=== PATIENT | male | born 1935 | race Caucasian/White ===

== ENCOUNTER 2017-12-05 07:18 | Emergency (ER) | payer MEDICARE, BC ==
[~2017-12-05] VITALS: Ht 188 cm; Wt 91.0 kg
[~2017-12-05 07:18] MED LIST: ASPI81 PO; ATOR40TA49 PO; CALC600T10 PO; LACTCAP7 PO; LISI-360 PO; METO25 PO; PROS5TAB2 PO; PROT40TA PO; SUCR1S PO; TAMS0.4C67 PO; TICA90 PO
[2017-12-05 07:24] VITALS: BP 177/93; PULSE 93; RESP 16; TEMP 97.6; O2SAT 100
[2017-12-05] MEDS ORDERED: METO25TA3 PO (07:49)
[2017-12-05] MEDS ORDERED: ASPI81CH6 CHEW (07:49)
[2017-12-05] MEDS ORDERED: FINA5TAB2 PO (07:49)
[2017-12-05] MEDS ORDERED: LACTCAP8 PO (07:49)
[2017-12-05] MEDS ORDERED: VITA500T4 PO (07:49)
[2017-12-05] MEDS ORDERED: TAMS0.4C4 PO (07:49)
[2017-12-05] MEDS ORDERED: LISI10TA3 PO (07:49)
[2017-12-05] MEDS ORDERED: ATOR20TA15 PO (07:49)
[2017-12-05 08:00] VITALS: O2SAT 96
[2017-12-05] MEDS ORDERED: SODIUM CHLORIDE 0.9% FLUSH 10 ML FLUSH IVF PRN (08:00)
[2017-12-05 08:11] LABS: AUTOMATED NEUTROPHIL # 2.6 TH/MM3 (1.8-7.7); BASOPHIL # 0.1 TH/MM3 (0-0.2); BASOPHIL % 1.4 % (0.0-2.0); EOSINOPHIL # 0.1 TH/MM3 (0-0.4); EOSINOPHIL % 2.6 % (0.0-4.0); HEMOGLOBIN 13.2 GM/DL (13.0-17.0); LYMPHOCYTE # 1.1 TH/MM3 (1.0-4.8); MEAN CELL VOLUME 91.3 FL (80.0-100.0); MEAN CORPUSCULAR HEMOGLOBIN 30.3 PG (27.0-34.0); MEAN CORPUSCULAR HGB CONC 33.1 % (32.0-36.0); MEAN PLATELET VOLUME 7.8 FL (7.0-11.0); MONO % 10.7 % (0.0-8.0); MONOCYTE # 0.5 TH/MM3 (0-0.9); NEUT % 59.3 % (16.0-70.0); PLATELET COUNT 132 TH/MM3 (150-450); RED BLOOD COUNT 4.38 MIL/MM3 (4.50-5.90); RED CELL DISTRIBUTION WIDTH 12.6 % (11.6-17.2); WHITE BLOOD COUNT 4.4 TH/MM3 (4.0-11.0)
[2017-12-05 08:15] LABS: BILIRUBIN, URINE NEG (NEG); BLOOD, URINE TRACE (NEG); GLUCOSE,URINE NEG (NEG); KETONE, URINE NEG (NEG); NITRITE,URINE NEG (NEG); URINE COLOR YELLOW (YELLW/STRAW); URINE LEUKOCYTE ESTERASE NEG (NEG)
[2017-12-05 08:18] LABS: CHLORIDE 98 MEQ/L (98-107); SODIUM (NA) 130 MEQ/L (136-145)
[2017-12-05 08:20] VITALS: BP_SYST 132; BP_SYST 153; BP_SYST 163; BP_DIAS 62; BP_DIAS 67; BP_DIAS 73; RESP 18; RESP 20; RESP 22
[2017-12-05 08:21] LABS: CALCIUM 8.3 MG/DL (8.5-10.1)
[2017-12-05 08:22] LABS: ALBUMIN 3.9 GM/DL (3.4-5.0); BICARBONATE 24.6 MEQ/L (21.0-32.0); BLOOD UREA NITROGEN 17 MG/DL (7-18); GLUCOSE,RANDOM 98 MG/DL (74-106); INTERNATIONAL NORMALIZED RATIO 1.1 RATIO; MAGNESIUM 1.9 MG/DL (1.5-2.5); PROTHROMBIN TIME - PATIENT 10.7 SEC (9.8-11.6)
[2017-12-05 08:25] LABS: ALT (GPT) 22 U/L (12-78); AST (GOT) 28 U/L (15-37); GLOMERULAR FILTRATION RATE 64 ML/MIN (>89)
[2017-12-05 08:25] LABS: RBC, URINE 0-3 /hpf (0-3)
[2017-12-05 08:26] LABS: SQUAMOUS EPITHELIAL CELL URINE 0-5 /hpf (0-5)
[2017-12-05 08:27] LABS: TOTAL BILIRUBIN ADULT 0.9 MG/DL (0.2-1.0); TOTAL PROTEIN 7.2 GM/DL (6.4-8.2)
[2017-12-05 08:28] LABS: ALKALINE PHOSPHATASE 97 U/L (45-117)
[2017-12-05 08:30] LABS: TROPONIN I LESS THAN 0.02 NG/ML (0.02-0.05)
--- NOTE | 2017-12-05 08:33 | RADRPT ---
EXAM DATE/TIME: 12/05/2017 08:08 [place] COMPARISON: CHEST PA & LAT, November 18, 2015, 4:21. INDICATIONS : General weakness. MEDICAL HISTORY : Hypertension. Hypercholesterolemia. CAD, Heartburn SURGICAL HISTORY : Cholecystectomy. Appendectomy. Cardiac stent ENCOUNTER: Initial ACUITY: 1 week PAIN SCORE: 0/10 LOCATION: Bilateral chest FINDINGS: PA and lateral views of the chest demonstrate the lungs to be symmetrically aerated without evidence of mass, infiltrate or effusion. The cardiomediastinal contours are unremarkable. Osseous structure s are intact. CONCLUSION: No acute disease. Jaxon Horton MD FACR on December 05, 2017 at 8:32 Board Certified Radiologist. This report was verified electronically.
[2017-12-05] MEDS ORDERED: SODIUM CHLOR 0.9% 1000 ML INJ 1,000 ML IV SCH (09:20)
--- NOTE | 2017-12-05 09:32 | PD ---
HPI Chief Complaint: Dizziness Time Seen by Provider: 07:48 Travel History International Travel<30 days: No Contact w/Intl Traveler<30days: No Traveled to known affect area: No History of Present Illness HPI This is an 82-year-old male who presents for general fatigue and dizziness. He states that he started Lipitor 9 days ago. Since around then, he states that he has felt generally fatigued and dizzy with standing. He denies muscle aches. He has had about a week of cough. No fever, chills. No chest pain or shortness of breath. No abdominal pain, vomiting, melena, hematochezia. No urinary urgency, frequency, dysuria, hematuria. He is not sure if this is a medication reaction to the Lipitor or not. Symptoms are mild in severity. Onset gradual. The lightheadedness is aggravated by standing. No focal weakness, numbness, tingling. PFSH Past Medical History Hx Anticoagulant Therapy: Yes Autoimmune Disease: No Anxiety: No Depression: No Heart Rhythm Problems: No Cancer: No Cardiovascular Problems: Yes High Cholesterol: Yes Chemotherapy: No Chest Pain: Yes Congestive Heart Failure: No Cerebrovascular Accident: No Coronary Artery Disease: Yes (Heart cath w/ stenting ) Diabetes: No Diminished Hearing: Yes ([facility]) Endocrine: No Gastrointestinal Disorders: Yes (CHRONIC DIARRHEA) GERD: Yes Glaucoma: No Genitourinary: No Hiatal Hernia: No Hypertension: Yes Immune Disorder: No Implanted Vascular Access Dvce: No Musculoskeletal: No Neurologic: No Psychiatric: No Reproductive: No Respiratory: No Immunizations Current: Yes Radiation Therapy: No Sickle Cell Disease: No Thyroid Disease: No Ulcer: Yes Tetanus Vaccination: > 5 Years Influenza Vaccination: Yes Past Surgical History Abdominal Surgery: Yes AICD: No Appendectomy: Yes Arteriovenous Shunt: No Cardiac Surgery: No Cholecystectomy: Yes Ear Surgery: No Endocrine Surgery: No Eye Surgery: No Genitourinary Surgery: No Gynecologic Surgery: No Insulin Pump: No Joint Replacement: No Neurologic Surgery: No Oral Surgery: Yes (DENTAL) Pacemaker: No Thoracic Surgery: No Other Surgery: Yes (VASECTOMY - 1984) Social History Alcohol Use: No Tobacco Use: No Substance Use: No Allergies-Medications (Allergen,Severity, Reaction): Coded Allergies: No Known Allergies (Unverified Adverse Reaction, Unknown, 12/05/17) Reported Meds & Prescriptions Reported Meds & Active Scripts Active Reported Atorvastatin (Atorvastatin Calcium) 20 Mg Tab 20 Mg PO HS Probiotic (Lactobacillus Acidophilus) 10 Billion Cell Cap 1 Cap PO DAILY Vitamin B-12 (Cyanocobalamin) 500 Mcg Tab 500 Mcg PO DAILY Finasteride 5 Mg Tab 5 Mg PO DAILY Do not crush. Tamsulosin (Tamsulosin HCl) 0.4 Mg Cap 0.4 Mg PO HS Aspirin Low Dose (Aspirin) 81 Mg Chew 81 Mg CHEW DAILY Lisinopril 10 Mg Tab 10 Mg PO DAILY Metoprolol Tartrate 25 Mg Tab 25 Mg PO BID Review of Systems Except as stated in HPI: all other systems reviewed are Neg Physical Exam Narrative GENERAL: Alert, well nourished, well appearing patient resting on the bed in no acute distress. Vital Signs reviewed SKIN: Focused skin assessment warm/dry. HEAD: Atraumatic. Normocephalic. EYES: Pupils equal and round. No scleral icterus. No injection or drainage. ENT: No nasal bleeding or discharge. Mucous membranes pink and moist. NECK: Trachea midline. No JVD. Spontaneous, painless full range of motion with no meningismus CARDIOVASCULAR: Regular rate and rhythm. No murmur appreciated. Extremities warm and well perfused with bounding peripheral pulses RESPIRATORY: No accessory muscle use. Clear to auscultation. Breath sounds equal bilaterally. Breathing easily and speaking in full sentences GASTROINTESTINAL: Abdomen soft, non-tender, nondistended. Normal bowel sounds. No rigid, rebound, guarding MUSCULOSKELETAL: No obvious deformities. No clubbing. No cyanosis. No edema. Compartments are soft NEUROLOGICAL: Awake and alert. No obvious cranial nerve deficits. Motor grossly within normal limits. Normal speech. Sensation intact. Normal gait Data Data Last Documented VS Vital Signs Date Time Temp Pulse Resp B/P (MAP) Pulse Ox O2 Delivery O2 Flow Rate FiO2 12/05/17 10:46 80 14 156/72 (100) 85 16 151/75 (100) 90 16 140/65 (90) 12/05/17 08:00 96 Room Air 12/05/17 07:24 97.6 Orders Orders Complete Blood Count With Diff (12/05/17 07:56) Comprehensive Metabolic Panel (12/05/17 07:56) Magnesium (Mg) (12/05/17 07:56) Ckmb (Isoenzyme) Profile (12/05/17 07:56) Troponin I (12/05/17 07:56) Act Partial Throm Time (Ptt) (12/05/17 07:56) Prothrombin Time / Inr (Pt) (12/05/17 07:56) Urinalysis - C+S If Indicated (12/05/17 07:56) Chest, Pa & Lat (12/05/17 07:56) Ecg Monitoring (12/05/17 07:56) Iv Access Insert/Monitor (12/05/17 07:56) Oximetry (12/05/17 07:56) Sodium Chloride 0.9% Flush (Ns Flush) (12/05/17 08:00) Orthostatic Vital Signs (12/05/17 07:56) Creatine Kinase (Cpk) (12/05/17 07:56) Influenzae A/B Antigen (12/05/17 07:56) CKMB (12/05/17 08:05) CKMB% (12/05/17 08:05) Sodium Chlor 0.9% 1000 Ml Inj (Ns 1000 M (12/05/17 09:20) Labs Laboratory Tests Test 12/05/17 08:05 12/05/17 08:11 White Blood Count 4.4 TH/MM3 Red Blood Count 4.38 MIL/MM3 Hemoglobin 13.2 GM/DL Hematocrit 40.0 % Mean Corpuscular Volume 91.3 FL Mean Corpuscular Hemoglobin 30.3 PG Mean Corpuscular Hemoglobin Concent 33.1 % Red Cell Distribution Width 12.6 % Platelet Count 132 TH/MM3 Mean Platelet Volume 7.8 FL Neutrophils (%) (Auto) 59.3 % Lymphocytes (%) (Auto) 26.0 % Monocytes (%) (Auto) 10.7 % Eosinophils (%) (Auto) 2.6 % Basophils (%) (Auto) 1.4 % Neutrophils # (Auto) 2.6 TH/MM3 Lymphocytes # (Auto) 1.1 TH/MM3 Monocytes # (Auto) 0.5 TH/MM3 Eosinophils # (Auto) 0.1 TH/MM3 Basophils # (Auto) 0.1 TH/MM3 CBC Comment DIFF FINAL Differential Comment Prothrombin Time 10.7 SEC Prothromb Time International Ratio 1.1 RATIO Activated Partial Thromboplast Time 26.4 SEC Blood Urea Nitrogen 17 MG/DL Creatinine 1.10 MG/DL Random Glucose 98 MG/DL Total Protein 7.2 GM/DL Albumin 3.9 GM/DL Calcium Level 8.3 MG/DL Magnesium Level 1.9 MG/DL Alkaline Phosphatase 97 U/L Aspartate Amino Transf (AST/SGOT) 28 U/L Alanine Aminotransferase (ALT/SGPT) 22 U/L Total Bilirubin 0.9 MG/DL Sodium Level 130 MEQ/L Potassium Level 4.4 MEQ/L Chloride Level 98 MEQ/L Carbon Dioxide Level 24.6 MEQ/L Anion Gap 7 MEQ/L Estimat Glomerular Filtration Rate 64 ML/MIN Total Creatine Kinase 208 U/L Creatine Kinase MB 4.8 NG/ML Troponin I LESS THAN 0.02 NG/ML Urine Collection Type CLEAN CATCH Urine Color YELLOW Urine Turbidity CLEAR Urine pH 7.0 Urine Specific [place] 1.005 Urine Protein NEG mg/dL Urine Glucose (UA) NEG mg/dL Urine Ketones NEG mg/dL Urine Occult Blood TRACE Urine Nitrite NEG Urine Bilirubin NEG Urine Urobilinogen 0.2 MG/DL Urine Leukocyte Esterase NEG Urine RBC 0-3 /hpf Urine Squamous Epithelial Cells 0-5 /hpf Microscopic Urinalysis Comment CULT NOT INDICATED Urine Collection Time 08:11 [facility] Medical Decision Making Medical Screen Exam Complete: Yes Emergency Medical Condition: Yes Medical Record Reviewed: Yes Interpretation(s) EKG shows sinus rhythm with a rate of 85. No acute ST elevation. Laboratory Tests Test 12/05/17 08:05 12/05/17 08:11 White Blood Count 4.4 TH/MM3 Red Blood Count 4.38 MIL/MM3 Hemoglobin 13.2 GM/DL Hematocrit 40.0 % Mean Corpuscular Volume 91.3 FL Mean Corpuscular Hemoglobin Concent 33.1 % Red Cell Distribution Width 12.6 % Platelet Count 132 TH/MM3 Mean Platelet Volume 7.8 FL Neutrophils (%) (Auto) 59.3 % Lymphocytes (%) (Auto) 26.0 % Monocytes (%) (Auto) 10.7 % Eosinophils (%) (Auto) 2.6 % Basophils (%) (Auto) 1.4 % Neutrophils # (Auto) 2.6 TH/MM3 Lymphocytes # (Auto) 1.1 TH/MM3 Monocytes # (Auto) 0.5 TH/MM3 Eosinophils # (Auto) 0.1 TH/MM3 Basophils # (Auto) 0.1 TH/MM3 CBC Comment DIFF FINAL Differential Comment Prothrombin Time 10.7 SEC Prothromb Time International Ratio 1.1 RATIO Activated Partial Thromboplast Time 26.4 SEC Blood Urea Nitrogen 17 MG/DL Creatinine 1.10 MG/DL Random Glucose 98 MG/DL Total Protein 7.2 GM/DL Albumin 3.9 GM/DL Calcium Level 8.3 MG/DL Magnesium Level 1.9 MG/DL Alkaline Phosphatase 97 U/L Aspartate Amino Transf (AST/SGOT) 28 U/L Alanine Aminotransferase (ALT/SGPT) 22 U/L Total Bilirubin 0.9 MG/DL Sodium Level 130 MEQ/L Potassium Level 4.4 MEQ/L Chloride Level 98 MEQ/L Carbon Dioxide Level 24.6 MEQ/L Anion Gap 7 MEQ/L Estimat Glomerular Filtration Rate 64 ML/MIN Total Creatine Kinase 208 U/L Creatine Kinase MB 4.8 NG/ML Troponin I LESS THAN 0.02 NG/ML Urine Collection Type CLEAN CATCH Urine Color YELLOW Urine Turbidity CLEAR Urine pH 7.0 Urine Specific [place] 1.005 Urine Protein NEG mg/dL Urine Glucose (UA) NEG mg/dL Urine Ketones NEG mg/dL Urine Occult Blood TRACE Urine Nitrite NEG Urine Bilirubin NEG Urine Urobilinogen 0.2 MG/DL Urine Leukocyte Esterase NEG Urine RBC 0-3 /hpf Urine Squamous Epithelial Cells 0-5 /hpf Microscopic Urinalysis Comment CULT NOT INDICATED Urine Collection Time 08:11 Last 24 hours Impressions Chest X-Ray 12/05/17 0751 Signed Impressions: Service Date/Time: Tuesday, December 05, 2017 08:08 - CONCLUSION: No acute disease. Jaxon Horton MD FACR Differential Diagnosis Dehydration, orthostatic hypotension, rhabdomyolysis, bronchitis, pneumonia, medication reaction Narrative Course Patient was placed on a cardiac rehabilitation program director. IV access was established. Labs, chest x-ray were performed. I reviewed the patient's orthostatic vital signs. He was given 1 L normal saline bolus. His CPK is normal. At 11 AM, I reviewed the results of the workup with the patient. He is resting comfortably on the bed in no acute distress. He is feeling better. We discussed plan for discharge with supportive care and close outpatient follow-up. He plans on calling his testing specialist today to discuss the Lipitor and whether he should continue taking it. Patient understands the importance of close outpatient follow-up. He understands he may require further testing and treatment as an outpatient. He understands strict return indications. He is comfortable with this plan and eager to go home. Diagnosis Primary Impression: Dehydration Additional Impression: General weakness Referrals: Markell Reese MD Primary Care Physician Patient Instructions: Dehydration (DC), General Instructions Additional Instructions: Drink plenty of fluids to stay well hydrated. Call your testing specialist today to discuss the Lipitor. Follow-up with primary physician in 3 days for recheck. Call today to make an appointment. Return with worsening symptoms. Med/Other Pt SpecificInfo: No Change to Meds Disposition: 01 DISCHARGE HOME Condition: Stable Kaylee Pablo MD Dec 05, 2017 09:32
[2017-12-05 10:46] VITALS: BP_SYST 140; BP_SYST 151; BP_SYST 156; BP_DIAS 65; BP_DIAS 72; BP_DIAS 75; RESP 14; RESP 16
--- NOTE | 2017-12-06 10:14 | EKG ---
Date Performed: 12/05/2017 Time Performed: 07:44:57 PTAGE: 82 years EKG: Sinus rhythm WITH OCCASIONAL SUPRAVENTRICULAR PREMATURE COMPLEXES MODERATE INTRAVENTRICULAR CONDUCTION DELAY BORD JAYLEN ECG PREVIOUS TRACING : 04/09/2016 04.31 DOCTOR: Marcelo Blanca Interpretating Date/Time 12/06/2017 10:12:27
== END 2017-12-05 11:20 | disposition home or self-care (01) ==
LOC: PHED 07:18
DX: E86.0 Dehydration (principal); R53.83 Other fatigue; E78.00 Pure hypercholesterolemia, unspecified; I10 Essential (primary) hypertension; Z79.899 Other long term (current) drug therapy
CPT/HCPCS: 71046; 80053; 81001; 82550; 82552; 83735; 84484; 85025; 85610; 85730; 87804; 93005; 96360; 99285; J7030